=== PATIENT | male | born 1965 | race Caucasian/White ===

== ENCOUNTER 2021-07-18 21:57 | Emergency (ER) | payer OTHER ==
[~2021-07-18] VITALS: Ht 177.8 cm; Wt 107.5 kg
[2021-07-18] MEDS ORDERED: DOXYCYCLINE 10100 MG PO (22:14)
[2021-07-18] MEDS ORDERED: HUMALOG100 UNIT/1 SUBQ (22:17)
[2021-07-18 22:30] VITALS: BP 120/73
== END 2021-07-18 22:30 | disposition home or self-care (01) ==
LOC: M.ERS 21:57
DX: L03.116 Cellulitis of left lower limb (principal); B35.3 Tinea pedis; E11.9 Type 2 diabetes mellitus without complications; Z79.4 Long term (current) use of insulin; Z88.5 Allergy status to narcotic agent